=== PATIENT | female | born 1965 | race Caucasian/White ===

== ENCOUNTER 2016-09-03 10:24 | Emergency (ER) | payer BC ==
[2016-09-03 10:29] VITALS: PULSE 72; TEMP 98.6; BMI 30.9
--- NOTE | 2016-09-03 10:52 | PDOC ---
History of Present Illness <Sawyer Jaeger - Last Filed: 09/03/16 12:01> - General History Source: Patient Exam Limitations: No Limitations - History of Present Illness Initial Comments: 09/03/16 10:52 Patient is a 50 year old female with PMH of HTN, HLD who presents to ED with light-headedness since this AM. She woke up this morning with a mild tinnitus in her ears. States she started to feel a little light-headed as well. She had some breakfast thinking she was just hungry. After breakfast she developed nausea and ran to the bathroom. She vomited once, nonbloody and had a loose BM. She felt alot better after vomiting. She states she has been very stressed out and anxious lately due to family stressors. Denies any sick contacts. Denies cheat pain, SOB, changes in vision, headache, blood in urine or stools. Denies fever or chills. Denies eating anything raw or unusual lately. <Nathan Acuna - Last Filed: 09/03/16 13:40> - General Chief Complaint: Lightheaded Stated Complaint: Lightheaded Time Seen by Provider: 09/03/16 10:39 Past History <Sawyer Jaeger - Last Filed: 09/03/16 12:01> - Travel Traveled outside of the country in the last 30 days: No Close contact w/someone who was outside of country & ill: No - Past Medical History HTN: Yes Hypercholesterolemia: Yes - Surgical History Other Surgical History: 09/03/16 10:57 x2 - Family Disease History Comment:: 09/03/16 10:57 noncontributory - Immunization History Td Vaccination: No - Psycho/Social/Smoking Cessation Hx Anxiety: No Suicidal Ideation: No Smoking Status: No Smoking History: Never smoked Have you smoked in the past 12 months: No Number of Cigarettes Smoked Daily: 0 Information on smoking cessation initiated: No Hx Alcohol Use: No Drug/Substance Use Hx: No Substance Use Type: None <Nathan Acuna - Last Filed: 09/03/16 13:40> - Past Medical History Allergies/Adverse Reactions: Allergies Allergy/AdvReac Type Severity Reaction Status Date / Time No Known Allergies Allergy Verified 09/03/16 10:26 Home Medications: Ambulatory Orders Lisinopril/Hydrochlorothiazide [Lisinopril-Hctz 20-25 mg Tab] 1 each PO DAILY Review of Systems - Review of Systems Able to Perform ROS?: Yes Is the patient limited Micronesian proficient: No HEENTM: Yes: Tinnitus Cardiac (ROS): Yes: Lightheadedness ABD/GI: Yes: Diarrhea, Nausea, Vomiting Neurological: Yes: Unsteady Gait Psychiatric: Yes: Anxiety, Stressors <Nathan Acuna - Last Filed: 09/03/16 13:40> *Physical Exam - Vital Signs Last Vital Signs Temp Pulse Resp BP Pulse Ox 98.6 F 72 18 124/80 100 09/03/16 10:27 09/03/16 10:27 09/03/16 10:27 09/03/16 10:27 09/03/16 10:27 <Sawyer Jaeger - Last Filed: 09/03/16 12:01> - Vital Signs Last Vital Signs Temp Pulse Resp BP Pulse Ox 98.6 F 72 18 124/80 100 09/03/16 10:27 09/03/16 10:27 09/03/16 10:27 09/03/16 10:27 09/03/16 10:27 - Physical Exam General Appearance: Yes: Nourished, Appropriately Dressed HEENT: positive: EOMI, LE, Normal ENT Inspection, Pharynx Normal Neck: positive: Trachea midline, Normal Thyroid, Supple Respiratory/Chest: positive: Lungs Clear, Normal Breath Sounds Cardiovascular: positive: Regular Rhythm, Regular Rate, S1, S2 Gastrointestinal/Abdominal: positive: Normal Bowel Sounds, Flat, Soft Musculoskeletal: positive: Normal Inspection Extremity: positive: Normal Inspection, Normal Range of Motion Integumentary: positive: Normal Color, Dry, Warm 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 There is normal sinus rhythm with a rate of 57 The intervals are normal. There is normal R wave progression There are no ST or T wave abnormalities. Impression: <Sawyer Jaeger - Last Filed: 09/03/16 12:01> ED Treatment Course - LABORATORY CBC & Chemistry Diagram: 09/03/16 11:10 09/03/16 11:10 - ADDITIONAL ORDERS Additional order review: Laboratory Results 09/03/16 11:10 Sodium 135 L Potassium 3.3 L Chloride 98 Carbon Dioxide 29 Anion Gap 8 BUN 12 Creatinine 0.8 Creat Clearance w eGFR > 60 Random Glucose 166 H Calcium 9.6 Total Bilirubin 0.7 AST 19 ALT 28 Alkaline Phosphatase 64 Total Protein 7.9 Albumin 4.2 09/03/16 11:10 RBC 4.52 MCV 90.2 MCHC 33.9 RDW 12.7 MPV 7.5 Neutrophils % 75.2 Lymphocytes % 18.1 Monocytes % 5.4 Eosinophils % 0.8 Basophils % 0.5 - Medications Given in the ED: ED Medications Discontinued Medications Generic Name Dose Route Start Last Admin Trade Name Freq PRN Reason Stop Dose Admin Sodium Chloride 1,000 mls @ 1,000 mls/hr 09/03/16 10:58 09/03/16 11:00 Normal Saline - IV 09/03/16 11:57 1,000 mls/hr ASDIR STA Administration Metoclopramide HCl 10 mg 09/03/16 11:22 09/03/16 11:31 Reglan Injection - IVPB 09/03/16 11:23 10 mg ONCE ONE Administration <Sawyer Jaeger - Last Filed: 09/03/16 12:01> - LABORATORY CBC & Chemistry Diagram: 09/03/16 11:10 09/03/16 11:10 <Nathan Acuna - Last Filed: 09/03/16 13:40> Medical Decision Making - Medical Decision Making 09/03/16 11:23 Ordered CBC, CMP. ECG normal. Given 1liter IVF NS and ordered Reglan 10mg. 09/03/16 13:38 Patient feels back to baseline after fluid administration and reglan. Walked around the ED with no lightheadedness or dizziness or gait imbalance. Suggested continued fluid intake and rest once at home. Will f.u with her PCP on tuesday. <Nathan Acuna - Last Filed: 09/03/16 13:40> *DC/Admit/Observation/Transfer <Sawyer Jaeger - Last Filed: 01/20/17 12:01> - Discharge Dispostion Admit: No <KalpanaNathan - Last Filed: 09/03/16 13:40> Diagnosis at time of Disposition: Lightheadedness - Discharge Dispostion Disposition: HOME Condition at time of disposition: Improved - Patient Instructions Additional Instructions: Continue drinking lots of fluids. Visit your regular doctor on Tuesday if symptoms still persist.
[2016-09-03] MEDS ORDERED: SODIUM CHLORIDE 1,000 ML IV STA (10:58)
[2016-09-03 11:20] LABS: BASOPHIL 0.5 % (0-2.0); EOSINOPHIL 0.8 % (0-4.5); MCH 30.5 pg (25.7-33.7); MCHC 33.9 g/dl (32.0-36.0); MEAN CELL VOLUME 90.2 fl (80-96); MEAN PLT VOLUME 7.5 fl (7.5-11.1); NEUTROPHILS 75.2 % (42.8-82.8); PLATELET COUNT 353 K/MM3 (134-434); RDW 12.7 % (11.6-15.6); WHITE BLOOD COUNT 7.6 K/mm3 (4.0-10.0)
[2016-09-03] MEDS ORDERED: METOCLOPRAMIDE HCL INJECTION 10 MG/2 ML VIAL IVPB ONE (11:22)
[2016-09-03] MEDS ORDERED: METOCLOPRAMIDE HCL INJECTION 10 MG/2 ML VIAL ONE (11:28)
[2016-09-03 11:50] LABS: ALBUMIN 4.2 g/dl (3.4-5.0); ALK PHOS 64 U/L (45-117); ANION GAP 8 (8-16); BILIRUBIN,TOTAL 0.7 mg/dL (0.2-1.0); CALCIUM 9.6 mg/dL (8.5-10.1); CO2 29 mmol/L (21-32); CREATININE 0.8 mg/dL (0.55-1.02); GLUCOSE,RANDOM 166 mg/dL (74-106); SGOT/AST 19 U/L (15-37); SGPT/ALT 28 U/L (12-78); TOT PROT 7.9 g/dl (6.4-8.2)
--- NOTE | 2016-09-03 11:56 | PDOC ---
Attending Attestation - Resident Resident Name: Kaplana,Nathan - ED Attending Attestation I have performed the following: I have examined & evaluated the patient, The case was reviewed & discussed with the resident, I agree w/resident's findings & plan - HPI HPI: 09/03/16 11:55 see below - Physicial Exam PE: 09/03/16 11:56 see below - Medical Decision Making 09/03/16 11:56 50y F hx of htn, hld presents with dizziness this morning. The pt sgtates she awoke up with bilateral tinnitus, then very lightheaded, although pt denies any room spinning/vertigo sensation, associated with nausea and 1 episode of vomiting. The pt states she currently feels significantly improved with resolution of sypmtoms. There was no associated cp, sob, n/v, diaphoresis, headache, neck pain, back pain, abd pain. Pts vitals normal and exam nonfocal including a nonfocal neuro exam (normal finger to nose, strength, sensation). will ck labs to r/o anemia, metabolic derangement ekg to r/o arrythmia will give fluids, reglan for nausea will reasses A portion of this note was documented by scribe services under my direction. I have reviewed the details of the note, within reason, and agree with the documentation with the following case summary and management plan written by me 09/03/16 13:22 pt feeling significantly improved labs reivewed pt ambulatory with normal gait will d/c the pt with pmd fu reutrn precautions were discussed
[2016-09-03] MEDS ORDERED: POTASSIUM CHLORIDE TABS 20 MEQ TABLET.ER (FP) PO ONE (13:47)
[2016-09-03] MEDS ORDERED: POTASSIUM CHLORIDE TABS 10 MEQ TABLET.ER (FP) ONE (13:49)
[2016-09-03 14:12] VITALS: BP 128/89
--- NOTE | 2016-09-03 15:20 | EKG ---
Test Reason : Blood Pressure : / mmHG Vent. Rate : 057 BPM Atrial Rate : 057 BPM P-R Int : 138 ms QRS Dur : 084 ms QT Int : 436 ms P-R-T Axes : 023 -11 -14 degrees QTc Int : 424 ms SINUS BRADYCARDIA WITH SINUS ARRHYTHMIA MODERATE VOLTAGE CRITERIA FOR LVH, MAY BE NORMAL VARIANT NONSPECIFIC ST ABNORMALITY NO PREVIOUS ECGS AVAILABLE Confirmed by ОЛЬГА DAY MD ([id number]) on 09/03/2016 3:20:04 PM Referred By: Confirmed By:ОЛЬГА DAY MD
== END 2016-09-03 14:00 | disposition home or self-care (01) ==
LOC: JER 10:24
PROC: 3E033GC Introduction of Other Therapeutic Substance into Peripheral Vein, Percutaneous Approach (ICD-10-PCS; principal; 2016-09-03)
PROC: 3E0337Z Introduction of Electrolytic and Water Balance Substance into Peripheral Vein, Percutaneous Approach (ICD-10-PCS; 2016-09-03)
DX: R42 Dizziness and giddiness (principal); I10 Essential (primary) hypertension; E78.5 Hyperlipidemia, unspecified
CPT/HCPCS: 36415; 80053; 85025; 93005; 93010; 99284-25

== ENCOUNTER → 2021-10-28 | Day surgery (SDC) | payer BC | END | disposition home or self-care (01) | LOC: JMAMMO-SUR 11:53 | PROVIDERS: ATTEND Physician Assistant | PROC: 0H9T3ZX Drainage of Right Breast, Percutaneous Approach, Diagnostic (ICD-10-PCS; principal; 2021-10-28) | DX: D24.1 Benign neoplasm of right breast (principal) | CPT/HCPCS: 19083; 87899; 88305-TC; A4648 ==

== ENCOUNTER 2025-01-29 07:20 | Day surgery (SDC) | payer BC ==
[2025-01-23 15:00] VITALS: BMI 30.9
[2025-01-29] MEDS ORDERED: PROPOFOL 80 ML ONE (08:22)
[2025-01-29] MEDS ORDERED: LIDOCAINE HCL/PF 2% SDV 5ML VIAL ONE (08:22)
[2025-01-29] MEDS ORDERED: MIDAZOLAM HCL 2 MG/2 ML SINGLE DOSE VIAL ONE (08:22)
[2025-01-29] MEDS ORDERED: BUPIVACAINE HCL/PF 0.5% (5MG/ML) 10 ML VIAL ONE (08:38)
[2025-01-29] MEDS ORDERED: DEXAMETHASONE SOD PHOSPHATE 4 MG/1 ML VIAL ONE (08:38)
[2025-01-29] MEDS ORDERED: VANCOMYCIN 1,000 MG VIAL (RESTRICTED TO ID ONLY) ONE ×2 (08:41→09:24)
[2025-01-29] MEDS ORDERED: TRANEXAMIC ACID 1000 MG/10 ML VIAL ONE ×2 (09:24→10:44)
[2025-01-29] MEDS ORDERED: ONDANSETRON 4 MG/2 ML VIAL IVPUSH PRN (09:51)
[2025-01-29] MEDS ORDERED: PROMETHAZINE HCL 25 MG/1 ML VIAL IVPB PRN (09:51)
[2025-01-29] MEDS ORDERED: oxyCODONE HCL 5 MG TABLET PO PRN (09:51)
[2025-01-29] MEDS ORDERED: BUPIVICAINE 0.25%/MORPH PF/KETOROLAC - 51ML DISP.SYRINGE IA ONE (10:23)
[2025-01-29] MEDS ORDERED: PROPOFOL 40 ML ONE (10:30)
[2025-01-29] MEDS ORDERED: MAG HYDROX/AL HYDROX/SIMETH 30 ML UNIT-DOSE CUP PO PRN (11:27)
[2025-01-29] MEDS ORDERED: ACETAMINOPHEN INJECTION 100 ML ONE (12:05)
[2025-01-29] MEDS: ACETAMINOPHEN 1000 MG/100 ML BAG IVPB ONE (12:08)
[2025-01-29] MEDS: ALBUTEROL SO4 0.083% IH SOL 2.5 MG/3 ML VIAL.NEB. NEB ONE (14:15)
[2025-01-29] MEDS: LACTATED RINGERS SOLUTION 1,000 ML IV SCH ×2 (14:16)
[2025-01-29] MEDS: oxyCODONE HCL 5 MG TABLET PO PRN (17:10)
[2025-01-29] MEDS: CEFAZOLIN 2 GM/D5W 2 GRAM/50 ML ML IVPB SCH (17:10)
[2025-01-29] MEDS: GABAPENTIN 300 MG CAPSULE PO SCH (21:03)
[2025-01-29] MEDS: SENNOSIDES/DOCUSATE COMBO (SENNA PLUS) TABLET (UD) PO SCH (21:03)
[2025-01-30 08:04] LABS: HEMATOCRIT 36.8 % (34.1-44.9); HEMOGLOBIN 12.4 g/dL (11.2-15.7); MCHC 33.7 g/dl (32.2-35.5); MEAN CELL VOLUME 91.1 fl (79.4-94.8); MEAN PLT VOLUME 9.1 fl (9.4-12.3); PLATELET COUNT 307 x10^3/uL (182-369); RDW 11.7 % (12.3-16.6)
[2025-01-30 08:15] LABS: CALCIUM 9.6 mg/dl (8.5-10.1); CREATININE 0.5 mg/dl (0.6-1.3); POTASSIUM 3.3 mmol/L (3.5-5.1)
[2025-01-30] MEDS: CHLORTHALIDONE 25 MG TABLET PO SCH (09:12)
[2025-01-30] MEDS: MULTIVITAMINS (DAILY MVI) TABLET (FP) PO SCH (09:12)
[2025-01-30] MEDS: PANTOPRAZOLE 40 MG TABLET PO SCH (09:12)
[2025-01-30] MEDS: ASPIRIN COATED 81 MG TABLET.EC PO SCH (09:12)
[2025-01-30] MEDS: metFORMIN HCL 500 MG TABLET (FP) PO SCH (09:12)
[2025-01-30] MEDS: ONDANSETRON 4 MG/2 ML VIAL IVPUSH PRN (12:27)
[2025-01-30 18:22] VITALS: BP 120/72; PULSE 69; RESP 17; TEMP 98.5
== END 2025-01-30 18:15 | disposition home health service (06) ==
LOC: FASUSAT 07:20 → FM/S 12:40 → FASUSAT 01-30 18:15
PROVIDERS: ATTEND Orthopaedic Surgery Sports Medicine
PROC: 8E0Y0CZ Robotic Assisted Procedure of Lower Extremity, Open Approach (ICD-10-PCS; 2025-01-29)
PROC: 0SRD0JA Replacement of Left Knee Joint with Synthetic Substitute, Uncemented, Open Approach (ICD-10-PCS; principal; 2025-01-29 09:44)
DX: M17.12 Unilateral primary osteoarthritis, left knee (principal)
CPT/HCPCS: 20985; 27447; C1776; S2900; 36415; 73560-TC-LT-FY; 80048; 82962; 85027; 88305-TC; 88311-TC; 94760; 97010-GP; 97116-GP; 97162-GP